=== PATIENT | male | born 2005 | race Caucasian/White ===

== ENCOUNTER 2025-02-08 17:22 | Emergency (ER) | payer BC, SELFPAY ==
[2025-02-08 17:26] VITALS: BP 149/99
[2025-02-08 17:49] LABS: Hematocrit 40.1 % (39.0-52.0); Hemoglobin 14.1 g/dL (13.0-18.0); Mean Corp Hgb Conc. 35.2 g/dL (33.0-37.0); Mean Corpuscular Volume 88.5 fL (80.0-94.0); Nucleated Red Blood Cells % 0 % (-); Platelet Count 153 10^3/uL (130-400); Red Cell Dist. Width 11.9 % (11.5-14.5)
[2025-02-08 18:11] LABS: ALT (SGPT) < 10 U/L (0-50); AST (SGOT) 25 U/L (17-59); Albumin 4.6 g/dl (3.5-5.0); Alkaline Phosphatase 47 U/L (38-126); Blood Urea Nitrogen 14 mg/dl (9-20); Calcium 9.1 mg/dl (8.4-10.2); Carbon Dioxide 26 mmol/L (22-30); Chloride 103 mmol/L (98-107); Glucose 112 mg/dl (70-99); Potassium 4.0 mmol/L (3.5-5.1); Sodium 136 mmol/L (135-145); Total Protein 7.3 g/dl (6.3-8.2); eGFR > 60.00
[2025-02-08 18:17] LABS: COVID-19 Antigen Negative (Negative)
[2025-02-08 21:07] VITALS: BP 142/78
[2025-02-08 21:09] VITALS: BMI 23.7
--- NOTE | 2025-02-08 21:36 | ED.GENMED ---
History of Present Illness
General
Chief Complaint: Fever
Source: patient and family
Time Seen by Provider: 02/08/25 21:21
History of Present Illness
History of Present Illness:
20-year-old male presents emergency department accompanied by his mother and girlfriend. He first developed 'shakes' and feeling feverish on Tuesday evening. Then, yesterday morning he noted intermittent fever associated with intermittent
headache and sometimes feeling lightheaded when he would stand up. He has a very slight sore throat rated 2 out of 10. He does not have trouble swallowing. He denies nausea, vomiting, neck pain, chest pain, dyspnea, cough, abdominal pain, ear
pain, back pain, urinary symptoms, rash, or other complaints. Patient does feel much better when he has either Advil or Tylenol. He went to the urgent care and was referred to the emergency department.
Past History
Past History
ED Past Medical History: None
ED Past Surgical History: None
Social History
Tobacco: Non-smoker
Alcohol: None
Drug: None
Living: with family
Phy Exam
Physical Exam
Physical Exam:
GENERAL: Alert , in no apparent distress, pleasant, well-appearing, nontoxic
EYE: pupils equal and reactive, no photophobia, EOMI
NECK: Supple, no significant adenopathy, nods yes and no spontaneously.
ENT: o/p clr, mmm, uvula midline, no trismus, no drool, voice clear, no exudate.
CARDIAC: Regular rate and rhythm .
LUNGS: Clear breath sounds bilaterally, no acute respiratory distress, no wheezes/rales/rhonchi
ABDOMEN: Soft, without focal tenderness, no r/g, no cvat
NEUROLOGICAL: Alert and oriented, no focal neuro deficits
SKIN: Warm and dry, skin intact.
MUSCULOSKELETAL: No edema, well perfused.
PSYCH: Normal and appropriate interaction.
Course
Orders/Labs/Results
Orders:
Orders
02/08/25 17:41
COVID-19 Antigen Urgent
Source: Nasal Swab
Complete Blood Count/With Diff Urgent
Comprehensive Metabolic Panel Urgent
Rapid Strep Group A Urgent
JESSIE Source: Throat/Pharynx
Specimen Description:
Date Specimen was Collected: 02/08/25
Time Specimen was Collected: 17:31
Abnormal Lab Results
02/08/25
17:41
RBC 4.53 L 10^6/uL
(4.70-6.10)
MCH 31.1 H pg
(27.0-31.0)
Absolute Lymphs (auto) 0.3 L 10^3/uL
(1.2-3.4)
Neutrophils % 80.9 H %
(42.2-75.2)
Lymphocytes % 6.5 L %
(20.5-51.1)
Monocytes % 11.0 H %
(1.7-9.3)
Glucose 112 H mg/dl
(70-99)
02/08/25 17:41
02/08/25 17:41
Vital Signs
Initial and Last Documented VS:
Initial Vital Signs
Temp Pulse BP Pulse Ox
101 F H 89 149/99 96
02/08/25 17:26 02/08/25 17:26 02/08/25 17:26 02/08/25 17:26
Last Documented Vital Signs
Temp Pulse Resp BP Pulse Ox
100.7 F H 68 20 142/78 98
02/08/25 21:07 02/08/25 21:07 02/08/25 21:07 02/08/25 21:07 02/08/25 21:07
*Pulse Oximetry
SaO2: 98
Oxygen Mode of Delivery: Room air
Patient hypoxic: no
*Critical Care Note
Total Time (30-74mins, 75-104mins- exclusive of procedures): Not Applicable
Update Note
Update Note:
Patient presents to the Emergency Department with ___fever and mild headache
Number and Complexity of Problems Addressed at the Encounter
� Chronic conditions affecting care:
� Acute Exacerbation and/or Progression of Chronic Illness:
� Differential Diagnosis includes: But not limited to viral infection, URI, meningitis, encephalitis, strep pharyngitis, flu, COVID, etc.
Amount and/or Complexity of Data to be Reviewed and Analyzed
� I performed an independent evaluation of and my interpretation is:
EKG:
CT:
Xrays:
Laboratory Studies: Normal white blood cell count, no lymphocytic predominance to suggest mono, COVID-negative, strep negative
Other:
� Review of other/old records reveals:
� Clinical information was obtained by an independent historian: Mother and girlfriend who are at bedside
� Prescriptions/Medications Considered but not given:
� Further testing considered but not performed:
Risk of Complications and/or Morbidity or Mortality of Patient Management
� Social determinants of health affecting care:
� Discussion with other providers (PCP, Hospitalists, Consultants, etc):
� Escalation of care including admission/observation vs risk of discharge considered: I note that flu has not been checked. Discussed with patient and family option to test for flu, they understand that patient may be flu
positive but do not feel that this would supervisor policy change clerks of supportive care at home and therefore defer testing. Do not see signs or symptoms to suggest more worrisome illness such as meningitis, encephalitis, pneumonia, etc. Discussed with
patient to follow-up and reasons to return to the ER.
ED Attending Note
-
Portions of this chart may have been created with voice recognition software.� Occasional wrong word or��sound alike� substitutions may have occurred due to the inherent limitations of voice recognition software.
Discharge Plan
Departure
Patient Disposition: Home (Routine Discharge)
Date of Disposition: 02/08/25
Time of Disposition: 21:36
Patient with high blood pressure during this ER visit?: Yes
Condition: Good
Discharge Problem:
Fever
Instructions: Fever, Adult (DC), BLOOD PRESSURE
Referrals:
Verito Marino MD [Family Provider, Family Practice] - Follow up in 2-3 days
Activity Restrictions/Additional Instructions:
IF YOU DEVELOP PERSISTENT FEVER, SEVERE HEADACHE, NECK PAIN, VOMITING, TROUBLE BREATHING, CHEST PAIN, ABDOMINAL PAIN, GET WORSE, DO NOT GET BETTER, OR OTHER WORRISOME SIGNS, PLEASE RETURN TO THE ER IMMEDIATELY!
Interventions
Interventions:
*Risk Screen - Suicide Last Done: 02/08/25 17:26
*General Assessment Last Done: 02/08/25 21:10
*Neglect/Abuse Screening Last Done: 02/08/25 17:26
*ED- Fall Risk Assessment Last Done: 02/08/25 21:10
*ED COVID-19 Vaccine History Last Done: 02/08/25 21:10
ED- Neurological Assessment Last Done: 02/08/25 21:09
ED-Skin Assessment Last Done: 02/08/25 21:09
Discharge Date and Time
Print Language: CONGOLESE
== END 2025-02-08 21:43 | disposition home or self-care (01) ==
LOC: EMR 17:22
PROVIDERS: Emergency Medicine; EMERGENCY PHYSICIAN Emergency Medicine; FAMILY PHYSICIAN Family Medicine
DX: R50.9 Fever, unspecified (principal); R51.9 Headache, unspecified; Z11.52 Encounter for screening for COVID-19
CPT/HCPCS: 80053; 85025; 87070; 87811; 87880; 99283